=== PATIENT | male | born 1980 | race Caucasian/White ===

== ENCOUNTER 2018-10-08 15:16 | Emergency (ER) | payer OTHER ==
[2018-10-08] MEDS: Lidocaine 2% 20 ML MDV INFILT ONE (17:00)
[2018-10-08] MEDS: Bacitracin Oint 1 GM U/D Packet TOP ONE (17:20)
--- NOTE | 2018-10-08 18:16 | EDM.PDOC ---
ED HPI GENERAL MEDICAL PROBLEM - General Chief Complaint: General Stated Complaint: LACERATION THUMB LEFT Time Seen by Provider: 10/08/18 16:00 Source of Information: Reports: Patient History Limitations: Reports: No Limitations - History of Present Illness INITIAL COMMENTS - FREE TEXT/NARRATIVE: According to patient , he was at work today. He was using his pocket knife to cut a hose pipe. Accidentally slide the left thumb tip and the slice went through his nail and sustained a large skin laceration. Pt did clean and apply pressure and came into emergency room for evaluation. No severe pain in his thumb. No tingling or numbness in the thumb. Pt claims his last tetanus shot was 2 years ago. No other complaints. Onset: Today Onset Date: 10/08/18 Onset Time: 15:00 Duration: Constant Location: Reports: Upper Extremity, Left Quality: Reports: Ache Severity: Mild Improves with: Reports: None Worsens with: Reports: None Associated Symptoms: Denies: Confusion, Chest Pain, Cough, Diaphoresis, Fever/ Chills, Nausea/Vomiting, Rash, Syncope, Weakness Left Finger-Thumb Pain Score (Numeric/FACES): 1 - Related Data Allergies Allergy/AdvReac Type Severity Reaction Status Date / Time No Known Allergies Allergy Verified 10/08/18 16:55 Home Meds: Home Meds Indomethacin 50 mg PO DAILY PRN 10/08/18 [History] Lisinopril/Hydrochlorothiazide [Lisinopril-Hctz 20-12.5 mg Tab] 1 each PO DAILY 10/08/18 [History] Metoprolol Succinate 100 mg PO DAILY 10/08/18 [History] Rosuvastatin [Crestor] 5 mg PO DAILY 10/08/18 [History] amLODIPine Besylate [Norvasc] 10 mg PO DAILY 10/08/18 [History] Past Medical History Cardiovascular History: Reports: Hypertension Musculoskeletal History: Reports: Gout ED ROS GENERAL - Review of Systems Review Of Systems: See Below Constitutional: Denies: Fever, Chills HEENT: Denies: Ear Pain, Rhinitis, Throat Pain Respiratory: Denies: Cough, Sputum Cardiovascular: Denies: Chest Pain, Lightheadedness GI/Abdominal: Denies: Abdominal Pain, Nausea, Vomiting Musculoskeletal: Denies: Joint Pain, Joint Swelling, Muscle Pain Skin: Reports: Wound. Denies: Bruising, Pruritis, Rash ED EXAM, GENERAL - Physical Exam Exam: See Below Exam Limited By: No Limitations General Appearance: Alert, WD/WN, No Apparent Distress Eye Exam: Bilateral Eye: EOMI, PERRL Ears: Normal External Exam, Normal Canal, Hearing Grossly Normal, Normal TMs Ear Exam: Bilateral Ear: Auricle Normal, Canal Normal, TM normal Nose: Normal Inspection, Normal Mucosa, No Blood Throat/Mouth: Normal Inspection, Normal Lips, Normal Teeth, Normal Gums, Normal Oropharynx, Normal Voice, No Airway Compromise Head: Atraumatic, Normocephalic Neck: Normal Inspection, Supple, Non-Tender, Full Range of Motion Respiratory/Chest: No Respiratory Distress, Lungs Clear, Normal Breath Sounds, No Accessory Muscle Use, Chest Non-Tender Cardiovascular: Normal Peripheral Pulses, Regular Rate, Rhythm, No Edema, No Gallop, No JVD, No Murmur, No Rub Extremities: Normal Range of Motion, No Pedal Edema, Normal Capillary Refill Skin Exam: Warm, Other (Left thumb: there is a circumfernetial cut over the medail aspect of the thumb vertically down the medial edge of the nail extending into the skin The length is about 3cm. the flap seperates from the rest of the skin. acitvely bleeding. No tendon injury. Good ROM of motion at the small joints.) ED GENERAL MEDICAL PROCEDURES - Laceration/Wound Repair Left Digit - 1st (Thumb) Lac/wound length in cm: 3 (circumferential flap) Distal NVT: Neuro & Vascular Intact Anesthetic Type: Digital Local Anesthesia - Lidocaine (Xylocaine): 1% Plain Local Anesthetic Volume: 2cc Skin Prep: Providone-Iodine (Betadine), Saline Suture Size: 4-0 # of Sutures: 5 Suture Type: Interrupted, Other (ethilon) Sterile Dressing Applied: Provider Tetanus Status Addressed: Yes Complications: No Course - Vital Signs Text/Narrative:: Pt reassured that he has a circumferential laceration over the thumb. No tendon injuries. After consent was obtained. The laceration was closed under septic precautions. Wound care discussed with patient. Infection precautions discussed with patient. Suture removal in 1 wk. Advised elevation of the hand for 24 hrs to prevent venous engorgement, pain and bleeding. Motrin 800mg 3 times daily for pain as needed. Followup in clinic for suture removal. Last Recorded V/S: Last Vital Signs Temp 99.2 F 10/08/18 17:03 Pulse 83 10/08/18 17:03 Resp 16 10/08/18 17:03 BP 166/87 H 10/08/18 17:03 Pulse Ox 98 10/08/18 17:03 - Orders/Labs/Meds Orders: Active Orders 24 hr Category Date Time Status Procedure Tray at Bedside [RC] ASDIRECTED Care 10/08/18 17:30 Active Meds: Medications Discontinued Medications Generic Name Dose Route Start Last Admin Trade Name Yany PRN Reason Stop Dose Admin Bacitracin 1 dose 10/08/18 17:30 10/08/18 17:20 Bacitracin Oint 1 Gm TOP 10/08/18 17:31 1 dose ONETIME ONE Administration Lidocaine HCl 5 ml 10/08/18 17:30 10/08/18 17:00 Xylocaine 2% INFILT 10/08/18 17:31 5 ml ONETIME ONE Administration Departure - Departure Time of Disposition: 17:30 Disposition: Home, Self-Care 01 Condition: Fair Clinical Impression: Thumb laceration - Discharge Information *PRESCRIPTION DRUG MONITORING PROGRAM REVIEWED*: Not Applicable *COPY OF PRESCRIPTION DRUG MONITORING REPORT IN PATIENT KEYLA: Not Applicable Instructions: Laceration Care, Adult, [id number] Referrals: PCP,None [Primary Care Provider] - Forms: ED Department Discharge Additional Instructions: *Keep area clean and dry for 2 days, do not get the area wet *Keep elevated for 24 hours, elevate on a pillow when you sleep *Leave dressing on and keep covered for 2 days *You may apply antibiotic ointment as needed *Have sutures removed in 7 days by primary care provider *If you notice and increased pain or swelling notify your primary care provider *Monitor for any signs and symptoms of infection If you have any questions or concerns please call us at [phone] - Problem List & Annotations (1) Thumb laceration SNOMED Code(s): 114941258 Code(s): S61.019A - LACERATION W/O FOREIGN BODY OF THMB W/O DAMAGE TO NAIL, INIT Status: Acute - Problem List Review Problem List Initiated/Reviewed/Updated: Yes - My Orders Last 24 Hours: My Active Orders 10/08/18 17:30 Procedure Tray at Bedside [RC] ASDIRECTED - Assessment/Plan Last 24 Hours: My Active Orders 10/08/18 17:30 Procedure Tray at Bedside [RC] ASDIRECTED Assessment:: 3 cm circumferential laceration of the left thumb. Plan: Pt reassured that he has a circumferential laceration over the thumb. No tendon injuries. After consent was obtained. The laceration was closed under septic precautions. Wound care discussed with patient. Infection precautions discussed with patient. Suture removal in 1 wk. Advised elevation of the hand for 24 hrs to prevent venous engorgement, pain and bleeding. Motrin 800mg 3 times daily for pain as needed. Followup in clinic for suture removal.
== END 2018-10-08 17:24 | disposition home or self-care (01) ==
LOC: LB.ED 15:16
DX: S61.012A Laceration without foreign body of left thumb without damage to nail, initial encounter (principal); I10 Essential (primary) hypertension; Z79.899 Other long term (current) drug therapy; W26.0XXA Contact with knife, initial encounter; Y99.0 Civilian activity done for income or pay
CPT/HCPCS: 12002; 99282; J2001